=== PATIENT | male | born 1955 | race Caucasian/White ===

== ENCOUNTER 2018-12-31 10:19 | Emergency (ER) | payer OTHER ==
[~2018-12-31] VITALS: Ht 172.7 cm; Wt 80.3 kg
[~2018-12-31 10:19] MED LIST: CARAFATE 1 GM TA1 GM PO; PROTONIX40 M1 PO; ZOFRAN ODT4 MG PO
[2018-12-31] MEDS ORDERED: OMEPRAZOLE40 MG PO (10:28)
[2018-12-31 11:05] LABS: ABSOLUTE BASOPHILS 0.1 thou/uL (0.0-0.2); ABSOLUTE EOSINOPHILS 0.3 thou/uL (0.0-0.7); ABSOLUTE LYMPHOCYTES 1.6 thou/uL (0.8-5.3); ABSOLUTE MONOCYTES 0.6 thou/uL (0.0-1.2); ABSOLUTE NEUTROPHILS 5.2 thou/uL (1.6-8.1); BASOPHILS 0.9 %; EOSINOPHILS 3.8 %; HEMATOCRIT 48.4 % (42.0-52.0); HEMOGLOBIN 16.7 gm/dL (14.0-18.0); LYMPHOCYTES 20.2 %; MCH 31.1 pg (26.0-34.0); MCHC 34.5 g/dL (28.0-37.0); MCV 90.1 fL (80.0-100.0); MONOCYTES 7.7 %; MPV 6.5 fl. (7.2-11.1); NUCLEATED RBCS 0 /100WBC; PLATELET COUNT* 313 thou/uL (150-400); POLYS 67.4 %; RBC 5.37 mil/uL (4.50-6.00); RDW-CV 13.5 % (10.5-14.5); WBC 7.8 thou/uL (4.0-11.0)
[2018-12-31 11:15] LABS: INFLUENZA A ANTIGEN Negative (Negative); INFLUENZA B ANTIGEN Negative (Negative)
[2018-12-31 11:51] LABS: CALCIUM 9.7 mg/dL (8.5-10.1); CREATININE 1.1 mg/dL (0.6-1.3)
[2018-12-31] MEDS ORDERED: TESSALON PERLE100 MG PO (11:53)
[2018-12-31] MEDS ORDERED: MEDROLDOSEPACK PO (11:53)
[2018-12-31] MEDS ORDERED: AZITHROMYCIN500 MG PO (11:53)
[2018-12-31] MEDS ORDERED: VENTOLIN HFA 1818 GM INH (11:53)
[2018-12-31 11:55] LABS: ALBUMIN 3.9 g/dL (3.4-5.0); TOTAL BILIRUBIN 1.2 mg/dL (<0.1-1.0); TOTAL PROTEIN 7.4 g/dL (6.4-8.2)
[2018-12-31] MEDS ORDERED: PROMETH-CODEIN 65 ML PO (12:21)
[2018-12-31 12:35] VITALS: BP 100/54
--- NOTE | 2018-12-31 18:07 | EKG ---
[place] [address] ELECTROCARDIOGRAM REPORT Name: HIGINIO MCKEON Room: [facility]#: [id number] Admission: 12/31/18 Attend Phys: Discharge: 12/31/18 Date of : 51 Report #: [id number] THIS REPORT FOR: //name// [facility] ED Test Date: 2018-12-31 Test Time: 11:00:22 Pat Name: HIGINIO MCKEON Department: Room: Gender: M Manager Environmental Services: HUBER : 1955 Requested By: Sarah Jacques Order Number: [id number] MD: Octavio Colin Measurements Intervals [place] Rate: 89 P: 66 W[place]: 155 QRS: -11 QRSD: 81 T: 46 QT: 348 QTc: 424 Interpretive Statements Sinus rhythm poor r wave progression Probable left atrial enlargement No previous ECG available for comparison Electronically Signed On 12-31-2018 18:06:52 CDT by Octavio Colin [email or web address] <ELECTRONICALLY SIGNED> By: Octavio Colin MD, [facility] 12/31/18 1806 [address] [facility] [place] [facility] [place] Octavio Colin MD, FACC /EPI
== END 2018-12-31 12:36 | disposition home or self-care (01) ==
LOC: M.ERS 10:19
PROVIDERS: Nurse Practitioner Family
DX: J20.9 Acute bronchitis, unspecified (principal); R07.89 Other chest pain; Z87.891 Personal history of nicotine dependence; Z88.1 Allergy status to other antibiotic agents; Z88.6 Allergy status to analgesic agent

== ENCOUNTER 2019-12-02 09:01 | Observation (INO) | payer OTHER ==
[~2019-12-02] VITALS: Ht 170.2 cm; Wt 83.9 kg
--- NOTE | ~2019-12-02 | OP ---
[facility] [address] [place] [address] OPERATIVE REPORT Name: MCKEONHIGINIO G Room: [address] IN [place].#: [id number] Admission: 12/02/19 Attend Phys: Harpreet Hoffman Discharge: Date of : 51 Report #: [id number] THIS REPORT FOR: //name// cc: Dash Butt K. Steven DO ~ CC: Harpreet Butt DATE OF SERVICE: 12/02/2019 PREOPERATIVE DIAGNOSIS: Acute appendicitis. POSTOPERATIVE DIAGNOSIS: Acute appendicitis. OPERATION: Laparoscopic appendectomy. SURGEON: Harpreet Hoffman MD ANESTHESIA: General. ESTIMATED BLOOD LOSS: Minimal. SPECIMEN: Appendix. DESCRIPTION OF PROCEDURE: After informed consent was obtained, the patient was brought to the operating room and placed supine. SCDs were placed and working, preoperative antibiotics were administered, general anesthesia was induced. The abdomen was prepped and draped in the usual sterile fashion. A 10 mm incision was made below the umbilicus. Fascia was incised and a trocar was placed. Pneumoperitoneum was established. Right upper quadrant and left lower quadrant 5 mm trocars were placed. The patient was placed in the left side down position. This allowed visualization of the cecum. The appendix was visualized. A window was made in the mesoappendix. The mesoappendix was ligated with a MEGAN wharton load stapler. The base of the appendix was stapled off with a MEGAN blue load stapler. Appendix was removed through an Endopouch. The fascia was then closed with a gvdvns-sd-jerkc 0 Vicryl. Skin was closed with 4-0 Monocryl. Incisions were sealed with Dermabond. COMPLICATIONS: [place] [address] OPERATIVE REPORT Name: HIGINIO MCKEON Room: [address]#: [id number] Admission: 12/02/19 Attend Phys: Harpreet Hoffman Discharge: Date of : 51 Report #: [id number] DISPOSITION: The patient was taken to recovery in satisfactory condition. By: 1639 [id number] Hoffman MD /gage
[~2019-12-02 09:01] MED LIST changes: +AZITHROMYCIN500 MG PO; +MEDROLDOSEPACK PO; +OMEPRAZOLE40 MG PO; +PROMETH-CODEIN 65 ML PO; +TESSALON PERLE100 MG PO; +VENTOLIN HFA 1818 GM INH
[2019-12-02 09:12] LABS: URINE BILIRUBIN NEGATIVE (Negative); URINE BLOOD NEGATIVE (Negative); URINE CLARITY CLEAR; URINE COLOR YELLOW; URINE GLUCOSE-RANDOM NEGATIVE (Negative); URINE KETONES NEGATIVE (Negative); URINE LEUKOCYTES-REFLEX NEGATIVE (Negative); URINE NITRITE-REFLEX NEGATIVE (Negative); URINE PROTEIN NEGATIVE (Negative); URINE SPECIFIC GRAVITY >= 1.030 (1.005-1.030); URINE UROBILINOGEN 0.2 E.U./dl (0.2-1.0)
[2019-12-02 09:17] VITALS: BP 158/78
[2019-12-02] MEDS ORDERED: NEURONTIN100 MG PO (09:19)
[2019-12-02 09:20] LABS: ABSOLUTE EOSINOPHILS 0.1 thou/uL (0.0-0.7); ABSOLUTE LYMPHOCYTES 1.7 thou/uL (0.8-5.3); ABSOLUTE MONOCYTES 0.6 thou/uL (0.0-1.2); ABSOLUTE NEUTROPHILS 7.7 thou/uL (1.6-8.1); BASOPHILS 0.5 %; EOSINOPHILS 1.1 %; HEMATOCRIT 48.4 % (42.0-52.0); HEMOGLOBIN 16.8 gm/dL (14.0-18.0); LYMPHOCYTES 16.5 %; MCH 31.2 pg (26.0-34.0); MCHC 34.7 g/dL (28.0-37.0); MCV 89.9 fL (80.0-100.0); MONOCYTES 5.6 %; MPV 6.6 fl. (7.2-11.1); NUCLEATED RBCS 0 /100WBC; PLATELET COUNT* 268 thou/uL (150-400); POLYS 76.3 %; RBC 5.38 mil/uL (4.50-6.00); RDW-CV 14.1 % (10.5-14.5); WBC 10.1 thou/uL (4.0-11.0)
[2019-12-02 09:40] LABS: CALCIUM 9.5 mg/dL (8.5-10.1); CREATININE 1.2 mg/dL (0.6-1.3)
[2019-12-02 09:44] LABS: ALBUMIN 4.3 g/dL (3.4-5.0); TOTAL BILIRUBIN 1.5 mg/dL (<0.1-1.0); TOTAL PROTEIN 7.2 g/dL (6.4-8.2)
[2019-12-02 12:20] VITALS: BP 141/68
--- NOTE | 2019-12-02 16:16 | EKG ---
[place] [address] ELECTROCARDIOGRAM REPORT Name: HIGINIO MCKEON Room: [address] ADM IN [facility].#: [id number] Admission: 12/02/19 Attend Phys: Harpreet Delatorre Discharge: Date of : 51 Date of Service: 12/02/19 1111 Report #: [id number] THIS REPORT FOR: //name// [facility] ED Test Date: 2019-12-02 Test Time: 11:11:44 Pat Name: HIGINIO MCKEON Department: Room: [facility] Gender: M Online Marketing Strategist: LUPILLO : 1955 Requested By: Mark Green Order Number: [id number] MD: Jose Luis Corbin Measurements Intervals [place] Rate: 68 P: 80 [place]: 178 QRS: 6 QRSD: 101 T: 41 QT: 401 QTc: 427 Interpretive Statements Sinus rhythm Rare aberrantly conducted beat Low voltage, extremity and precordial leads Delayed R wave progression over the right precordium Baseline wander in lead(s) II,III,aVF Compared to ECG 12/31/2018 11:00:22 Low QRS voltage now present Electronically Signed On 12-02-2019 16:15:59 CDT by Jose Luis Corbin [email or web address] <ELECTRONICALLY SIGNED> By: Jose Luis Corbin MD, [facility] 12/02/19 1615 1111 1111 Jose Luis Corbin MD, [facility] /EPI
[2019-12-02 18:37] VITALS: BP 148/75
[2019-12-02 19:55] VITALS: BP 138/71
[2019-12-03] VITALS: BP 110/63
[2019-12-03 04:00] VITALS: BP 109/59
[2019-12-03 07:45] VITALS: BP 127/64
[2019-12-03 11:30] VITALS: BP 109/58
[2019-12-03 15:30] VITALS: BP 139/69
[2019-12-03 17:16] VITALS: BP 139/69
--- NOTE | 2019-12-05 11:07 | PATH ---
[address] [address] PATHOLOGY RPT PROCEDURE Name: HIGINIO SPENCE Room: [address] Xochitl#: [id number] Admission: 12/02/19 Date of : 51 Discharge: 12/03/19 Report #: [id number] Path Case #: [id number] LCA Accession Number: [id number] . 01 Material submitted: . appendix - APPENDIX . 01 Clinical history: . APPENDICITIS . 02 Diagnosis: Appendix: - Acute appendicitis, periappendicitis and serositis. (ADILIA:pit 12/05/2019) [facility] 12/05/2019 0946 Local . 02 Electronically signed: . Faisal Piña MD, Pathologist NPI- [id number] . 01 Gross description: . The specimen is received in formalin, labeled "Higinio Spence, appendix". Received is a vermiform appendix measuring 7.6 cm in length by up to 1.3 cm in diameter with dusky, wharton-pickett attached mesoappendix. The serosal surface is dusky wharton. The surgical margin is closed with a line of marv. The marv are removed and the new margin is inked black. Sectioning reveals a patent to dilated lumen filled with fecal material. The specimen is submitted representatively in cassettes A1 and A2, with the proximal margin and bisected tip submitted in cassette A1. (CAA; 12/03/2019) QAC/QAC 12/05/2019 0945 Local . 02 Pathologist provided ICD-10: K35.80 . 02 CPT . 697709 Specimen Comment: A courtesy copy of this report has been sent to [phone], [phone] Specimen Comment: [phone] Specimen Comment: Report sent to / DR LOPEZ Performed at: [address] [id number] MD Fareed Bravo MD Phone: [phone] Performed at: [address] [id number] [address] [address] PATHOLOGY RPT PROCEDURE Name: HIGINIO SPENCE Room: [address] Arlin Leung#: [id number] Admission: 12/02/19 Date of : 51 Discharge: 12/03/19 Report #: [id number] Path Case #: [id number] MD Faisal Piña MD Phone: [phone]
== END 2019-12-03 18:27 | disposition home or self-care (01) ==
LOC: M.ERS 09:01 → M.TBA-ER 11:20 → M.ORTHSURG 11:20
PROVIDERS: Family Medicine; ADMIT Surgery; ATTEND Surgery
DX: K35.80 Unspecified acute appendicitis (principal); J20.9 Acute bronchitis, unspecified; Z87.891 Personal history of nicotine dependence; Z79.899 Other long term (current) drug therapy; Z20.828 Contact with and (suspected) exposure to other viral communicable diseases